=== PATIENT | female | born 1945 | race African-American/Black ===

== ENCOUNTER 2021-07-04 13:09 | Emergency (ER) | payer OTHER ==
[~2021-07-04] VITALS: Ht 162.6 cm; Wt 78.9 kg
[2021-07-04 15:16] LABS: BASOPHILS 1.3 % (0.0-2.0); HEMOGLOBIN 12.4 gm/dL (12.0-15.0)
[2021-07-04 15:22] LABS: ABSOLUTE NEUTROPHILS 4.8 thou/uL (1.4-8.2); EOSINOPHILS 1.1 % (0.0-3.0); HEMATOCRIT 40.1 % (37.0-47.0); LYMPHOCYTES 17.9 % (24.0-44.0); MCH 21.9 pg (26.0-34.0); MCHC 30.8 g/dL (28.0-37.0); MCV 71.2 fL (80.0-100.0); MONOCYTES 5.5 % (1.0-8.0); PLATELET COUNT 264 thou/uL (150-400); POLYS 74.2 % (36.0-66.0); RBC 5.63 mil/uL (4.20-5.00); WBC 6.5 thou/uL (4.0-11.0)
[2021-07-04 15:24] LABS: CREATININE 1.5 mg/dL (0.6-1.0); POTASSIUM 5.2 mmol/L (3.5-5.1)
[2021-07-04 15:33] LABS: ALBUMIN 3.8 g/dL (3.4-5.0); TOTAL BILIRUBIN 0.2 mg/dL (0.2-1.0); TOTAL PROTEIN 7.8 g/dL (6.4-8.2)
[2021-07-04] MEDS ORDERED: NAPROSYN500 MG PO (15:46)
[2021-07-04] MEDS ORDERED: APAP W/CODEINE1 TA2 PO (15:46)
[2021-07-04 15:47] LABS: ANISOCYTOSIS SLIGHT; HYPOCHROMASIA 1+; LARGE PLATELETS OCCASIONAL; MACROCYTES FEW
[2021-07-04 16:01] VITALS: BP 170/77
--- NOTE | 2021-07-06 07:19 | EKG ---
[address] [address] ELECTROCARDIOGRAM REPORT Name: ANUJ MCKAY Room #: DEP Prakash#: [id number] Admission: 07/04/21 Attend Phys: Discharge: 07/04/21 Date of : 45 Report #: [id number] [facility] ED Test Date: 2021-07-04 Test Time: 15:17:26 Pat Name: ANUJ MCKAY Department: Room: Gender: F [employer]: YESSI : 1945 Requested By: Fabricio Ortiz Order Number: [id number] MD: Baljinder Ferguson Measurements Intervals [place] Rate: 55 P: 29 NC: 152 QRS: 6 QRSD: 89 T: 29 QT: 443 QTc: 424 Interpretive Statements Sinus rhythm Atrial premature complex No previous ECG available for comparison Electronically Signed On 07-06-2021 7:18:56 CDT by Baljinder Ferguson [email or web address] <ELECTRONICALLY SIGNED> By: Baljinder Ferguson MD, [facility] 07/06/21 0718 1517 1517 Baljinder Ferguson MD, FACC /EPI
== END 2021-07-04 16:13 | disposition home or self-care (01) ==
LOC: ER 13:09
PROVIDERS: Physician Assistant
DX: S46.011A Strain of muscle(s) and tendon(s) of the rotator cuff of right shoulder, initial encounter (principal); I10 Essential (primary) hypertension; E11.9 Type 2 diabetes mellitus without complications; X58.XXXA Exposure to other specified factors, initial encounter; Y93.89 Activity, other specified; Y92.89 Other specified places as the place of occurrence of the external cause; Y99.8 Other external cause status